=== PATIENT | female | born 1970 | race Caucasian/White ===

== ENCOUNTER 2023-10-18 06:47 | Day surgery (SDC) | payer OTHER ==
[2023-10-18] MEDS ORDERED: Propofol 200 MG/20 ML SDV IV ONE (06:48)
[2023-10-18] MEDS ORDERED: Ondansetron 4 MG/2 ML SDV IVPUSH ONE (06:48)
[2023-10-18] MEDS ORDERED: Lidocaine 2% 100 MG/5 ML Syringe IVPUSH ONE (06:48)
[2023-10-18] MEDS ORDERED: Midazolam 1 MG/ML 2 ML SDV IV ONE (06:48)
[2023-10-18] MEDS ORDERED: Sodium Chloride 0.9% 10 ML Syringe FLUSH PRN (07:00)
[2023-10-18] MEDS: Lactated Ringers 1,000 ML IV SCH (07:23)
[2023-10-18] MEDS: Simethicone Drops 40 MG/0.6 ML 30 ML Bottle ONE (07:52)
== END 2023-10-18 08:58 | disposition home or self-care (01) ==
LOC: FB.SDS 06:47
PROVIDERS: ATTEND Surgery
DX: K62.5 Hemorrhage of anus and rectum (principal); K59.09 Other constipation; I10 Essential (primary) hypertension; E78.5 Hyperlipidemia, unspecified; F32.A Depression, unspecified; K21.9 Gastro-esophageal reflux disease without esophagitis; F41.9 Anxiety disorder, unspecified; Z79.890 Hormone replacement therapy; Z79.899 Other long term (current) drug therapy
CPT/HCPCS: 00811; A9270-GY; J2250; J2405; J2704; J7120

== ENCOUNTER 2024-01-11 07:40 | Emergency (ER) | payer MEDICAID ==
[2024-01-11 08:03] LABS: BILIRUBIN,URINE SMALL (NEGATIVE); GLUCOSE,URINE NORMAL (NORMAL); KETONES,URINE NEGATIVE (NEGATIVE); LEUKOCYTE ESTERASE,URINE MODERATE (NEGATIVE); NITRITE,URINE POSITIVE (NEGATIVE); OCCULT BLOOD,URINE LARGE (NEGATIVE); PROTEIN,URINE 100 mg/dL (NEGATIVE); UROBILINOGEN,URINE 1 mg/dL (NEGATIVE)
[2024-01-11] MEDS ORDERED: Sodium Chloride 0.9% 10 ML Syringe FLUSH PRN (08:11)
[2024-01-11] MEDS ORDERED: Naloxone 0.4 MG/ML SDV IVPUSH PRN (08:13)
[2024-01-11 08:16] LABS: APPEARANCE,URINE CLOUDY (CLEAR); BACTERIA,URINE MANY (NS); COLOR,URINE ORANGE (YELLOW); MUCUS,URINE MODERATE (NS); RBC,URINE 75-100 (0-5); SQUAMOUS EPITHELIAL CELLS,UR FEW (NS,R,O)
[2024-01-11] MEDS: Morphine 4 MG/ML VIAL IVPUSH ONE (08:41)
[2024-01-11] MEDS: Ketorolac 30 MG/ML SDV IVPUSH ONE (08:44)
[2024-01-11 08:47] LABS: BASOPHILS PERCENT AUTO 0.5 % (0.2-1.5); EOSINOPHILS ABSOLUTE AUTO 0.2 x10-3/uL (0.0-0.8); EOSINOPHILS PERCENT AUTO 1.7 % (0.6-8.1); HEMOGLOBIN 14.4 g/dL (11.4-15.5); LYMPHOCYTES ABSOLUTE AUTO 1.5 x10-3/uL (1.0-4.4); LYMPHOCYTES PERCENT AUTO 14.9 % (18.4-52.1); MEAN CORPUSCULAR HEMOGLOBIN 31.8 pg (23.9-33.9); MEAN CORPUSCULAR HGB CONC 34.4 g/dL (31.9-34.8); MEAN CORPUSCULAR VOLUME 92.5 fL (76.7-100.5); MEAN PLATELET VOLUME 7.8 fL (7.1-12.4); MONOCYTES ABSOLUTE AUTO 0.5 x10-3/uL (0.3-1.0); NEUTROPHILS PERCENT AUTO 77.9 % (30.8-76.2); PLATELET COUNT,PLT 245 x10(3)uL (151-488); RED BLOOD CELL COUNT 4.54 x10(6)uL (3.60-5.20); RED CELL DISTRIBUTION WIDTH 13.1 % (12.3-16.5); WHITE BLOOD CELL COUNT,WBC 10.3 x10-3/uL (3.0-10.3)
[2024-01-11] MEDS: Sodium Chloride 0.9% 1,000 ML IV SCH (08:48)
[2024-01-11 08:50] LABS: BLOOD UREA NITROGEN,BUN 13 mg/dL (7-18); BUN/CREATININE RATIO 14.4 (9-20); CALCIUM 8.6 mg/dL (8.6-10.2); CARBON DIOXIDE,CO2 27 mmol/L (21-32); CHLORIDE,CL 105 mmol/L (100-110); CREATININE 0.9 mg/dL (0.55-1.02); ESTIMATED GFR 77 mL/min (>60); GLUCOSE RANDOM 104 mg/dL (80-116); POTASSIUM,K 4.3 mmol/L (3.5-5.3); SODIUM,NA 140 mmol/L (135-145)
[2024-01-11 10:04] VITALS: BP 157/78; PULSE 74
== END 2024-01-11 10:04 | disposition home or self-care (01) ==
LOC: FB.ED 07:40
DX: N13.2 Hydronephrosis with renal and ureteral calculous obstruction (principal); N39.0 Urinary tract infection, site not specified; I10 Essential (primary) hypertension; E78.00 Pure hypercholesterolemia, unspecified; E03.9 Hypothyroidism, unspecified; Z90.49 Acquired absence of other specified parts of digestive tract; Z79.899 Other long term (current) drug therapy; Z79.890 Hormone replacement therapy; Z88.1 Allergy status to other antibiotic agents
CPT/HCPCS: 36415; 74176; 80048; 81001; 85025; 96361; 96374; 96375; 99284-25; J1885; J2270; J7030